=== PATIENT | male | born 1970 | race Caucasian/White ===

== ENCOUNTER → 2016-08-18 14:18 | Outpatient (CLI) | payer MEDICAID ==
[2011-02-12 10:19] VITALS: BMI 37.2
== END | disposition home or self-care (01) ==
LOC: D.CT 14:18
DX: M54.2 Cervicalgia (principal); V89.2XXA Person injured in unspecified motor-vehicle accident, traffic, initial encounter; Y93.89 Activity, other specified; Y92.89 Other specified places as the place of occurrence of the external cause

== ENCOUNTER 2016-09-04 16:59 | Emergency (ER) | payer MEDICAID ==
[2011-02-12 10:19] VITALS: BMI 37.2
[2016-09-04 19:37] LABS: BASOPHILS 0.3 % (0-2); EOSINOPHILS 2.9 % (0-7); HEMATOCRIT 46.7 % (42.0-54.0); HEMOGLOBIN 15.7 g/dL (13.5-17.5); IMMATURE GRANULOCYTES 0.5 % (0-5); LYMPHOCYTES 21.9 % (15-50); MCH 29.7 pg (26.0-34.0); MCHC 33.6 g/dL (31.0-37.0); MCV 88.4 fL (80.0-100.0); MONOCYTES 10.8 % (2-11); NEUTROPHILS 63.6 % (40-80); RBC 5.28 10x6/uL (4.20-6.10); RDW 13.5 % (11.5-14.5); WBC 12.1 10x3/uL (4.8-10.8)
[2016-09-04 19:47] LABS: PLATELET COUNT 208 10x3/uL (130-400)
[2016-09-04 20:02] LABS: ALBUMIN 3.8 g/dL (3.4-5.0); ALKALINE PHOSPHATASE 147 U/L (46-116); ALT (SGPT) 212 U/L (10-68); BILIRUBIN - TOTAL 0.51 mg/dL (0.2-1.3); CALC OSMOLALITY 277 mosm/kg (275-300); CALCIUM 9.1 mg/dL (8.5-10.1); CARBON DIOXIDE 27.5 mmol/L (21.0-32.0); CHLORIDE - SERUM 103 mmol/L (98-107); CREATININE - SERUM 0.8 mg/dL (0.6-1.3); GLUCOSE 121 mg/dL (74-106); POTASSIUM - SERUM 4.2 mmol/L (3.5-5.1); PROTEIN - SERUM 7.4 g/dL (6.4-8.2); SODIUM 138 mmol/L (136-145); UREA NITROGEN 15 mg/dL (7-18); eGFR NON AFRICAN AMERICAN > 90 mL/min (90-120)
[2016-09-04 20:09] LABS: TROPONIN-I < 0.017 ng/mL (0.000-0.060)
== END 2016-09-04 23:03 | disposition home or self-care (01) ==
LOC: D.ER 16:59
PROVIDERS: Physician Assistant
DX: R42 Dizziness and giddiness (principal); E11.9 Type 2 diabetes mellitus without complications; V89.2XXA Person injured in unspecified motor-vehicle accident, traffic, initial encounter; Y93.89 Activity, other specified; Y92.89 Other specified places as the place of occurrence of the external cause; E78.5 Hyperlipidemia, unspecified; F17.200 Nicotine dependence, unspecified, uncomplicated

== ENCOUNTER → 2017-01-19 08:45 | Outpatient (CLI) | payer MEDICAID ==
[2011-02-12 10:19] VITALS: BMI 37.2
== END | disposition home or self-care (01) ==
LOC: D.MRI 08:45
DX: M54.12 Radiculopathy, cervical region (principal)

== ENCOUNTER 2017-02-03 21:14 | Emergency (ER) | payer MEDICAID ==
[2011-02-12 10:19] VITALS: BMI 37.2
== END 2017-02-04 01:20 | disposition home or self-care (01) ==
LOC: D.ER 21:14
DX: S83.91XA Sprain of unspecified site of right knee, initial encounter (principal); W19.XXXA Unspecified fall, initial encounter; Y93.89 Activity, other specified; Y92.029 Unspecified place in mobile home as the place of occurrence of the external cause; S30.0XXA Contusion of lower back and pelvis, initial encounter; S06.0X9A Concussion with loss of consciousness of unspecified duration, initial encounter; S16.1XXA Strain of muscle, fascia and tendon at neck level, initial encounter; E11.9 Type 2 diabetes mellitus without complications; F17.200 Nicotine dependence, unspecified, uncomplicated